=== PATIENT | male | born 1965 | race Two or more races ===

== ENCOUNTER 2016-06-17 20:16 | Emergency (ER) | payer MEDICAID ==
[~2016-06-17] VITALS: Ht 162.6 cm; Wt 81.6 kg
[2016-06-17 21:22] VITALS: BP 116/83
== END 2016-06-17 22:10 | disposition home or self-care (01) ==
LOC: ER 20:16
DX: J20.9 Acute bronchitis, unspecified (principal)
CPT/HCPCS: 71020

== ENCOUNTER 2018-06-25 16:10 | Emergency (ER) | payer MEDICAID ==
[~2018-06-25] VITALS: Ht 170.2 cm; Wt 90.7 kg
[2018-06-25 18:31] VITALS: BP 145/90
[2018-06-25] MEDS: MEPERIDINE HCL (50 MG/ML) 1 ML VIAL IM ONE (19:15)
[2018-06-25] MEDS: ONDANSETRON ODT 4 MG TAB PO ONE (19:15)
== END 2018-06-25 20:20 | disposition home or self-care (01) ==
LOC: EDBD 16:10 → ER 16:21
DX: M21.951 Unspecified acquired deformity of right thigh (principal); V03.90XA Pedestrian on foot injured in collision with car, pick-up truck or van, unspecified whether traffic or nontraffic accident, initial encounter; Y93.01 Activity, walking, marching and hiking; Y99.8 Other external cause status; Y92.89 Other specified places as the place of occurrence of the external cause
CPT/HCPCS: 73502; 73562; 96372; 99283; J2175; Q0162

== ENCOUNTER 2021-05-28 01:09 | Emergency (ER) | payer MEDICAID ==
[~2021-05-28] VITALS: Ht 162.6 cm; Wt 90.7 kg
[2021-05-28 01:16] VITALS: BP 114/75
== END 2021-05-28 02:33 | disposition left against medical advice (07) ==
LOC: ER 01:11
DX: M79.604 Pain in right leg (principal); R10.32 Left lower quadrant pain; Z53.21 Procedure and treatment not carried out due to patient leaving prior to being seen by health care provider

== ENCOUNTER 2021-08-06 18:00 | Inpatient (IN) | payer MEDICAID ==
[~2021-08-06] VITALS: Ht 162.6 cm; Wt 87.5 kg
[2021-08-06 19:19] LABS: Basophils # (auto) 0.1 10 ^3/uL (0-0.2); Basophils % (auto) 2.1 % (0.0-2.0); Eosinophils # (auto) 0.2 10 ^3/uL (0-0.8); Eosinophils % (auto) 2.6 % (0.0-7.0); Hematocrit 41.6 % (41.0-53.0); Hemoglobin 14.5 g/dL (13.5-17.5); Lymphocytes # (auto) 2.6 10 ^3/uL (0.4-5.4); Lymphocytes % (auto) 36.8 % (10.0-50.0); Mean Corpuscular Hemoglobin 29.4 pg (28.0-32.0); Mean Corpuscular Hgb Conc. 34.9 g/dL (32.0-36.0); Mean Corpuscular Volume 84.1 fL (80.0-100.0); Monocytes # (auto) 0.8 10 ^3/uL (0-1.3); Monocytes % (auto) 11.4 % (0.0-12.0); Neutrophils # (auto) 3.3 10 ^3/uL (1.6-8.6); Neutrophils % (auto) 47.1 % (37.0-80.0); Nucleated Red Blood Cells % 0.1 %; Red Blood Cells 4.95 10^6/uL (4.5-5.90); Red Cell Distribution Width 13.8 % (11.8-14.3); White Blood Cell 7.1 10^3/uL (4.4-10.8)
[2021-08-06 19:38] LABS: Albumin 3.8 g/dL (3.4-5.0); Calcium 8.6 mg/dL (8.5-10.1); Magnesium 2.5 mg/dL (1.6-2.6); Potassium 4.2 mmol/L (3.5-5.1)
[2021-08-06 19:41] LABS: Bilirubin, Total 0.8 mg/dL (0.2-1.0); Total Protein 7.6 g/dL (6.4-8.2)
[2021-08-06] MEDS ORDERED: ASPirin 81 mg TAB PO ONE (20:00)
[2021-08-06] MEDS ORDERED: HYDROcodone-ACET 5/325MG TAB PO PRN (21:30)
[2021-08-06] MEDS ORDERED: ONDANSETRON HCL 4 MG/2 ML VIAL IV PRN (21:30)
[2021-08-06] MEDS ORDERED: ACETAMINOPHEN 325 MG TAB PO PRN (21:30)
[2021-08-06] MEDS ORDERED: DOCUSATE SOD 100 MG CAP PO PRN (21:30)
[2021-08-06] MEDS ORDERED: MORPHINE SULFATE INJECTION 2 MG/ML SYRG IV PRN ×2 (21:30→23:30)
[2021-08-06] MEDS: SODIUM CHLOR 0.9% PF (SALINE LOCK) 10ML VIAL/SYR IV SCH (21:33)
[2021-08-06] MEDS ORDERED: ALBUTEROL SULF HFA 90MCG INH 200DOSE IN SCH (22:00)
[2021-08-06] MEDS ORDERED: ALBUTEROL SULF 2.5 MG/0.5ML(0.5%) NEB SOLN NEB PRN (22:00)
[2021-08-06 22:49] VITALS: BP 134/94
[2021-08-06 23:24] LABS: Cholesterol 148 mg/dL (< 200)
[2021-08-06 23:27] LABS: HDL Cholesterol 35 mg/dL (40-59); LDL Cholesterol 105 mg/dL (< 100); Triglycerides 107 mg/dL (< 150)
[2021-08-07 03:13] VITALS: BP 116/78
[2021-08-07] MEDS ORDERED: PNEUMOCOCCAL VACC POLYS 25 MCG/0.5 ML VIAL IM ONE (04:30)
[2021-08-07] MEDS ORDERED: HYDR-4798 PO (04:33)
[2021-08-07] MEDS ORDERED: ALBU108A5 INH (04:34)
[2021-08-07] MEDS: SODIUM CHLOR 0.9% PF (SALINE LOCK) 10ML VIAL/SYR IV SCH ×3 (05:08→22:14)
[2021-08-07 05:14] VITALS: BP 115/71
[2021-08-07 06:03] LABS: Basophils # (auto) 0 10 ^3/uL (0-0.2); Basophils % (auto) 0.9 % (0.0-2.0); Eosinophils # (auto) 0.3 10 ^3/uL (0-0.8); Eosinophils % (auto) 5.6 % (0.0-7.0); Hematocrit 39.5 % (41.0-53.0); Hemoglobin 13.7 g/dL (13.5-17.5); Lymphocytes # (auto) 2.3 10 ^3/uL (0.4-5.4); Lymphocytes % (auto) 41.2 % (10.0-50.0); Mean Corpuscular Hemoglobin 29.6 pg (28.0-32.0); Mean Corpuscular Hgb Conc. 34.8 g/dL (32.0-36.0); Mean Corpuscular Volume 85.1 fL (80.0-100.0); Monocytes # (auto) 0.7 10 ^3/uL (0-1.3); Monocytes % (auto) 12.5 % (0.0-12.0); Neutrophils # (auto) 2.2 10 ^3/uL (1.6-8.6); Neutrophils % (auto) 39.8 % (37.0-80.0); Nucleated Red Blood Cells % 0.2 %; Red Blood Cells 4.64 10^6/uL (4.5-5.90); Red Cell Distribution Width 13.8 % (11.8-14.3); White Blood Cell 5.5 10^3/uL (4.4-10.8)
[2021-08-07 06:26] LABS: Albumin 3.2 g/dL (3.4-5.0); Calcium 8.2 mg/dL (8.5-10.1); Potassium 3.7 mmol/L (3.5-5.1)
[2021-08-07 06:28] LABS: BUN/Creatinine Ratio 13.3
[2021-08-07 06:31] LABS: Bilirubin, Total 0.9 mg/dL (0.2-1.0); Total Protein 6.7 g/dL (6.4-8.2)
[2021-08-07 09:00] VITALS: BP 116/87
[2021-08-07] MEDS: ASPirin 81 mg TAB PO SCH (09:42)
[2021-08-07] MEDS: NITROGLYCERIN 0.4 MG SL TAB SL PRN ×3 (10:15→10:52)
[2021-08-07 13:00] VITALS: BP_SYST 122; BP_SYST 149; BP_DIAS 78; BP_DIAS 82
[2021-08-07 17:00] VITALS: BP 118/87
[2021-08-07 22:00] VITALS: BP 109/73
[2021-08-07] MEDS ORDERED: ATORVASTATIN 20 MG TAB PO SCH (22:00)
[2021-08-08 05:00] VITALS: BP 115/80
[2021-08-08] MEDS: SODIUM CHLOR 0.9% PF (SALINE LOCK) 10ML VIAL/SYR IV SCH ×2 (05:59→15:36)
[2021-08-08] MEDS: ASPirin 81 mg TAB PO SCH (08:45)
[2021-08-08 09:00] VITALS: BP 126/81
[2021-08-08 11:14] VITALS: BP 146/84
[2021-08-08 13:00] VITALS: BP 125/71
[2021-08-08 15:50] LABS: Amphetamine Screen, Urine NEGATIVE (NEGATIVE); Barbiturate Scree,Urine NEGATIVE (NEGATIVE); Benzodiazephine Screen, Urine NEGATIVE (NEGATIVE); Cannabinoid Screen, Urine NEGATIVE (NEGATIVE); Cocaine Screen, Urine NEGATIVE (NEGATIVE); Opiate Scree,Urine NEGATIVE (NEGATIVE); Phencyclidine Screen, Urine NEGATIVE (NEGATIVE)
[2021-08-08 17:00] VITALS: BP 117/73
== END 2021-08-08 20:30 | disposition left against medical advice (07) | DRG 198 ==
LOC: ER 18:00 → TELE-WESTW 23:19
PROVIDERS: ADMIT Nurse Practitioner Family; ATTEND Internal Medicine
DX: I20.0 Unstable angina (principal); E44.0 Moderate protein-calorie malnutrition; I11.9 Hypertensive heart disease without heart failure; E78.5 Hyperlipidemia, unspecified; E66.9 Obesity, unspecified; J45.909 Unspecified asthma, uncomplicated; Z53.29 Procedure and treatment not carried out because of patient's decision for other reasons; R73.03 Prediabetes; Z28.310 Unvaccinated for COVID-19; Z68.33 Body mass index [BMI] 33.0-33.9, adult; Z71.3 Dietary counseling and surveillance
CPT/HCPCS: 36415; 71045; 78452; 80053; 80061; 80307; 83036; 83735; 83880; 84443; 84484; 85025; 93005; 93017; 93306; 96374; G0378

== ENCOUNTER 2021-09-21 02:39 | Emergency (ER) | payer MEDICAID ==
[~2021-09-21] VITALS: Ht 162.6 cm; Wt 88.5 kg
[~2021-09-21 02:39] MED LIST: ALBU108A5 INH; HYDR-4798 PO
[2021-09-21 03:00] VITALS: BP 135/83
[2021-09-21 04:18] LABS: Basophils # (auto) 0 10 ^3/uL (0-0.2); Basophils % (auto) 0.5 % (0.0-2.0); Eosinophils # (auto) 0.3 10 ^3/uL (0-0.8); Eosinophils % (auto) 3.3 % (0.0-7.0); Hematocrit 40.7 % (41.0-53.0); Lymphocytes # (auto) 2.4 10 ^3/uL (0.4-5.4); Lymphocytes % (auto) 27.8 % (10.0-50.0); Mean Corpuscular Hemoglobin 29.1 pg (28.0-32.0); Mean Corpuscular Hgb Conc. 34.4 g/dL (32.0-36.0); Mean Corpuscular Volume 84.8 fL (80.0-100.0); Monocytes # (auto) 0.7 10 ^3/uL (0-1.3); Monocytes % (auto) 8.2 % (0.0-12.0); Neutrophils # (auto) 5.1 10 ^3/uL (1.6-8.6); Neutrophils % (auto) 60.2 % (37.0-80.0); Nucleated Red Blood Cells % 0.1 %; Red Cell Distribution Width 13.7 % (11.8-14.3); White Blood Cell 8.5 10^3/uL (4.4-10.8)
[2021-09-21 04:37] LABS: Potassium 3.5 mmol/L (3.5-5.1)
[2021-09-21 04:45] LABS: Albumin 3.6 g/dL (3.4-5.0); BUN/Creatinine Ratio 16.3; Bilirubin, Total 0.8 mg/dL (0.2-1.0); Calcium 8.6 mg/dL (8.5-10.1); Total Protein 7.1 g/dL (6.4-8.2)
== END 2021-09-21 04:20 | disposition home or self-care (01) ==
LOC: ER 02:39 → EDBD 02:39 → ER 04:20
DX: N20.0 Calculus of kidney (principal)
CPT/HCPCS: 36415; 74176; 80053; 85025; 93005

== ENCOUNTER 2021-10-23 22:51 | Emergency (ER) | payer MEDICAID ==
[~2021-10-23] VITALS: Ht 162.6 cm; Wt 95.0 kg
[2021-10-24 02:38] VITALS: BP 138/66
== END 2021-10-24 02:42 | disposition home or self-care (01) ==
LOC: ER 22:51
DX: M79.662 Pain in left lower leg (principal); M79.661 Pain in right lower leg; J45.909 Unspecified asthma, uncomplicated; Z87.442 Personal history of urinary calculi
CPT/HCPCS: 93970

== ENCOUNTER 2023-02-21 16:01 | Emergency (ER) | payer MEDICAID ==
[~2023-02-21] VITALS: Ht 167.6 cm; Wt 75.0 kg
[2023-02-21] MEDS ORDERED: HYDROcodone-ACET 7.5/325MG TAB PO ONE (22:30)
[2023-02-21] MEDS ORDERED: CYCL-611 PO (22:34)
[2023-02-21] MEDS ORDERED: HYDR-4902 PO (22:34)
[2023-02-21] MEDS: KETOROLAC TROMETH 60MG/2ML VIAL IM ONE ×2 (23:02→23:07)
[2023-02-21] MEDS ORDERED: ONDANSETRON ODT 4 MG TAB PO ONE (23:15)
[2023-02-22] VITALS: BP 138/78; PULSE 88; RESP 20; TEMP 98; O2SAT 100
== END 2023-02-22 00:06 | disposition home or self-care (01) ==
LOC: ER 16:01 → EDBD 16:01 → ER 02-22 00:06
DX: S13.9XXA Sprain of joints and ligaments of unspecified parts of neck, initial encounter (principal); S33.5XXA Sprain of ligaments of lumbar spine, initial encounter; S23.3XXA Sprain of ligaments of thoracic spine, initial encounter; S00.03XA Contusion of scalp, initial encounter; S20.212A Contusion of left front wall of thorax, initial encounter; N20.0 Calculus of kidney; N43.3 Hydrocele, unspecified; R91.1 Solitary pulmonary nodule; M89.9 Disorder of bone, unspecified; J45.909 Unspecified asthma, uncomplicated; Z79.899 Other long term (current) drug therapy; W18.39XA Other fall on same level, initial encounter; Y93.89 Activity, other specified; Y92.89 Other specified places as the place of occurrence of the external cause; Y99.8 Other external cause status
CPT/HCPCS: 70450; 71250; 72125; 74176; 99284; J1885; Q0162

== ENCOUNTER 2024-12-07 00:39 | Inpatient (IN) | payer MEDICAID ==
[2024-12-07] VITALS (7 sets, daily range): BP systolic 112–123; BP diastolic 72–79; PULSE 62–73; RESP 15–27; TEMP 97.3–98.7; O2SAT 94–97
[~2024-12-07] VITALS: Ht 154.9 cm; Wt 95.0 kg
[~2024-12-07 00:39] MED LIST changes: +CYCL-611 PO; +HYDR-4902 PO
--- NOTE | 2024-12-07 01:45 | DVH ---
Right lower extremity venous duplex Clinical History: r/o dvt Comparison: BI LOWER DVT on DOS: 10/24/21 Technique: Duplex Doppler evaluation of the deep venous system of the right lower extremity from the common femo ral vein to the popliteal vein including color Doppler and spectral/pulsed waveform analysis was perf ormed. Findings: The common femoral vein demonstrates appropriate compressibility and waveform variability. There is compressibility/patency of the great saphenous vein at the proximal thigh. The femoral vein demonstrates appropriate compressibility and waveform variability. The deep femoral vein demonstrates appropriate compressibility and waveform variability. The popliteal vein demonstrates appropriate compressibility and waveform variability. There is normal compressibility at the tibioperoneal trunk. Impression: 1. No right femoropopliteal venous thrombosis.
--- NOTE | 2024-12-07 02:10 | DVH ---
CHEST RADIOGRAPH Indication: cp Technique: 1 view Comparison: CXRP on DOS: 08/06/21, CHEST PORTABLE on DOS: 08/06/21 FINDINGS: Lines and Tubes: None Lungs/Pleura: No focal consolidation, pleural effusion or pneumothorax. Cardiomediastinum: Unremarkable. Other: No acute osseous abnormality. IMPRESSION: 1. No acute cardiopulmonary abnormality.
[2024-12-07 02:11] LABS: Hematocrit 42.3 % (41.0-53.0); Hemoglobin 14.4 g/dL (13.5-17.5); Mean Corpuscular Hemoglobin 29.0 pg (28.0-32.0); Mean Corpuscular Volume 85.0 fL (80.0-100.0); Nucleated Red Blood Cells % 0.1 %
--- NOTE | 2024-12-07 02:20 | ED.PDOC ---
History of Present Illness HPI Comments 59 y/o M is BIBA with c/c left, lateral chest wall pain. Patient endorses on watching a movie with his spouse when he had sudden and unprovoked onset of pain. No reported recent trauma alongside any pertinent history. Denial of any shortness of breath, nausea, vomiting, or further associated symptoms. Chief Complaint: Abdominal Pain Time Seen by MD: 00:45 Primary Care Provider: KENNETH Valdez Notes: Nurses Notes, Range Mechanic Notes, Medications, Allergies Allergies: Coded Allergies: NO KNOWN ALLERGIES (Unverified , 06/17/16) Home Meds Active Scripts Cyclobenzaprine HCl (Cyclobenzaprine Hydrochlo) 10 Mg Tab, 1 TAB PO Q8HPRN PRN, #15 TAB As needed for muscle spasm do not take with norco Prov:AVEL CABRERA MANAGER RESOURCE 02/21/23 Hydrocodone-Acetaminophen (Hydrocodone Bitartrate/AC 5-325 mg) 1 Tab Tab, 1 TAB PO Q6HR, #10 TAB as needed for pain Prov:AVEL CABRERA MANAGER RESOURCE 02/21/23 Reported Medications Albuterol Sulfate (Albuterol Sulfate Hfa) 108 Mcg/Act Aer, INH 08/07/21 Hydrocodone-Acetaminophen (Hydrocodone Bitartrate/AC 10-325 mg) 1 Tab Tab, 1 TAB PO TIDPRN, TAB 08/07/21 Information Source: Patient, Emergency Med Personnel Mode of Arrival: EMS Past Medical History PAST MEDICAL HISTORY: Angina, Asthma, Kidney Stones Surgical History: Denies all surgeries Family History Family History: Reviewed,noncontributory to illness Social History Smoker: Non-Smoker Alcohol: Denies ETOH Use Drugs: Denies Drug Use Lives In: Home All Other Systems: Reviewed and Negative (As per HPI) Physical Exam General Appearance: No Apparent Distress, Normal HEENT: Normal ENT Inspection, Pharynx Normal, TMs Normal Neck: Full Range of Motion, Non-Tender, Normal, Normal Inspection Respiratory: Chest Non-Tender, Lungs Clear, No Accessory Muscle Use, No Respiratory Distress, Normal Breath Sounds Cardiovascular: No Edema, No JVD, No Murmur, No Gallop, Normal Peripheral Pulses, Regular Rate/Rhythm Breast Exam: Deferred Gastrointestinal: No Organomegaly, Non Tender, No Pulsatile Mass, Normal Bowel Sounds, Soft Genitalia: Deferred Pelvic: Deferred Rectal: Deferred Extremities: No calf tenderness, Normal capillary refill, Normal inspection, Normal range of motion, Non-tender, No pedal edema Musculoskeletal : Location: Left Extremity Location: Chest (lateral chest wall ) Apperance: Normal, Tenderness Neurologic: Alert, business relations manager II-XII nml as Tested, No Motor Deficits, Normal Affect, Normal Mood, No Sensory Deficits Cerebellar Function: Normal Reflexes: Normal Skin: Dry, Normal Color, Warm Lymphatic: No Adenopathy Was a procedure done? Was a procedure done?: No Differential Dx Considerations may include: Musculoskeletal pain, splenic infarction, gastritis, GERD, PUD, among others X-Ray, Labs, Meds, VS Vital Signs Date Time Temp Pulse Resp B/P (MAP) Pulse Ox O2 Delivery O2 Flow Rate FiO2 12/07/24 01:11 81 12/07/24 00:49 98.7 86 15 120/78 98 98.7 Lab Test 12/07/24 01:53 Range/Units White Blood Count 7.8 4.4-10.8 10^3/uL Red Blood Count 4.97 4.5-5.90 10^6/uL Hemoglobin 14.4 13.5-17.5 g/dL Hematocrit 42.3 41.0-53.0 % Mean Corpuscular Volume 85.0 80.0-100.0 fL Mean Corpuscular Hemoglobin 29.0 28.0-32.0 pg Mean Corpuscular Hemoglobin Concent 34.1 32.0-36.0 g/dL Red Cell Distribution Width 13.7 11.8-14.3 % Platelet Count 389 140-450 10^3/uL Mean Platelet Volume 6.9 6.9-10.8 fL Neutrophils (%) (Auto) 48.4 37.0-80.0 % Lymphocytes (%) (Auto) 38.2 10.0-50.0 % Monocytes (%) (Auto) 9.1 0.0-12.0 % Eosinophils (%) (Auto) 3.5 0.0-7.0 % Basophils (%) (Auto) 0.8 0.0-2.0 % Neutrophils # (Auto) 3.8 1.6-8.6 10 ^3/uL Lymphocytes # (Auto) 3.0 0.4-5.4 10 ^3/uL Monocytes # (Auto) 0.7 0-1.3 10 ^3/uL Eosinophils # (Auto) 0.3 0-0.8 10 ^3/uL Basophils # (Auto) 0.1 0-0.2 10 ^3/uL Nucleated Red Blood Cells 0.1 % Sodium Level 139 136-145 mmol/L Potassium Level 4.3 3.5-5.1 mmol/L Chloride Level 102 98-107 mmol/L Carbon Dioxide Level 29 20-31 mmol/L Anion Gap 8 5-15 Blood Urea Nitrogen 11 9-23 mg/dL Creatinine 1.13 0.700-1.30 mg/dL Glomerular Filtration Rate Calc 76 >90 mL/min BUN/Creatinine Ratio 9.7 L 10.0-20.0 Serum Glucose 98 74-106 mg/dL Calcium Level 9.2 8.7-10.4 mg/dL Troponin I High Sensitivity 3 L </=54 ng/L [place] [id number] Ph: [phone] DIAGNOSTIC IMAGING Diagnostic Imaging Report : [id number] Signed PATIENT: HECTOR VERAS ACCT: [id number] UNIT: [id number] : 1965 LOC: ER ROOM / BED: / AGE / SEX: 59 / M ADM STATUS: REG ER SERVICE 0109 ORDERING PHYSICIAN: BLAKE KASPER MD PROCEDURE(s): RLDVT - RT Lower DVT REASON: r/o dvt ORDER NUMBER(s): [id number], ACCESSION NUMBER(s): [id number] Right lower extremity venous duplex Clinical History: r/o dvt Comparison: BI LOWER DVT on DOS: 10/24/21 Technique: Duplex Doppler evaluation of the deep venous system of the right lower extremity from the common femoral vein to the popliteal vein including color Doppler and spectral/pulsed waveform analysis was performed. Findings: The common femoral vein demonstrates appropriate compressibility and waveform variability. There is compressibility/patency of the great saphenous vein at the proximal thigh. The femoral vein demonstrates appropriate compressibility and waveform variability. The deep femoral vein demonstrates appropriate compressibility and waveform variability. The popliteal vein demonstrates appropriate compressibility and waveform variability. There is normal compressibility at the tibioperoneal trunk. Impression: 1. No right femoropopliteal venous thrombosis. ATED BY: KATHRYN ROBIN MD DICTATED DATE/TIME: 12/07/24142 SIGNED BY: KATHRYN ROBIN MD SIGNED DATE/TIME: 12/07/24142 CC: [place] [address] Ph: [phone] DIAGNOSTIC IMAGING Diagnostic Imaging Report : [id number] Signed PATIENT: HECTOR VERAS ACCT: [id number] UNIT: [id number] : 1965 LOC: ER ROOM / BED: / AGE / SEX: 59 / M ADM STATUS: REG ER SERVICE 8 ORDERING PHYSICIAN: BLAKE KASPER MD PROCEDURE(s): CXR1 - CHEST XRAY 1 VIEW REASON: cp ORDER NUMBER(s): [id number], ACCESSION NUMBER(s): [id number] CHEST RADIOGRAPH Indication: cp Technique: 1 view Comparison: CXRP on DOS: 08/06/21, CHEST PORTABLE on DOS: 08/06/21 FINDINGS: Lines and Tubes: None Lungs/Pleura: No focal consolidation, pleural effusion or pneumothorax. Cardiomediastinum: Unremarkable. Other: No acute osseous abnormality. IMPRESSION: 1. No acute cardiopulmonary abnormality. ATED BY: JOSEFINA COTO MD DICTATED DATE/TIME: 12/07/24206 SIGNED BY: JOSEFINA COTO MD SIGNED DATE/TIME: 12/07/24206 CC: Time of 1ST Reevaluation: 01:15 Reevaluation 1ST: Unchanged Patient Education/Counseling: Diagnosis, Treatment, Need For Follow Up Family Education/Counseling: Diagnosis, Treatment, Need For Follow Up Comments Patient reports a sudden onset of left says the chest pain which is nonreproducible. He also reports having some pain in the right leg. However there is no evidence of a DVT. The cardiac workup is unremarkable but patient has history is concerning for unstable angina he will be admitted for further evaluation Additional Information Previous visits: N/A The following tests were ordered, and results were reviewed by me: CXR, right lower DVT US, troponin, CBC, BMP, EKG Additional Information was gathered from interviewing the following independent historians: EMS I reviewed and agreed with the following test results read by other providers: CXR, right lower DVT US, I discussed treatment and results with medical personnel and: patient SEPSIS Sepsis Screen Date sepsis recognized/suspect: Dec 07, 2024 Time Sepsis recognized/suspect: 52 Recent Procedure: No On Antibiotic Therapy: No Respiratory Rate >20: No Heart Rate >90: No Temp<36 C (96.8 F) or >38.3 C: No SBP <90 or MAP <65 mmHG: No New Acute Mental Status Change: No Is the patient on CPAP, BIPAP,: No Physician Orders Electrocardigram (12/07/24 00:54) Electrocardigram (12/07/24 01:54) Electrocardigram (12/07/24 03:54) Rt Lower Dvt (12/07/24 01:09) Chest Xray 1 View (12/07/24 01:09) Continuous Ekg Monitoring 08,12,16,20,00,04 (12/07/24 01:09) Troponin-I Hs (12/07/24 02:09) Troponin-I Hs (12/07/24 04:09) Vital Signs Date Time Temp Pulse Resp B/P (MAP) Pulse Ox O2 Delivery O2 Flow Rate FiO2 12/07/24 01:11 81 12/07/24 00:49 98.7 86 15 120/78 98 98.7 Laboratory Tests Test 12/07/24 01:53 White Blood Count 7.8 10^3/uL (4.4-10.8) Departure 1 Departure Time of Disposition: 03:00 Impression: Primary Impression: Unstable angina Disposition: ADMITTED INPATIENT Admit to: Tele Condition: Serious Discharged With: Self, Spouse Critical Care Note Critical Care Time?: Yes (55 min-critical care time only) Critical care comment: Due to concerns for patients condition deteriorating, the care required my highest level of attention and readiness to intervene. I assessed the patient, reviewed the medical records, ordered the appropriate tests and treatments, then reassessed for results and responsiveness. I communicated with medical personnel and consultants and formulated a plan of care. Total critical care time excludes any procedures Stability Stability form required: No Heart Score Heart Score: Heart Score Response (Comments) Value History Moderate Suspicious 1 EKG Repolarization Disturb 1 Age 45-64 1 Risk Factors 1 or 2 risk factors 1 Troponin Normal limit 0 Total 4 I personally scribed for BLAKE KASPER MD ([email or web address]) on 12/07/24 at 02:20. Electronically submitted by Omid Duval ([email or web address]). BLAKE KASPER MD Dec 07, 2024 02:20
[2024-12-07 02:22] LABS: Chloride 102 mmol/L (98-107); Potassium 4.3 mmol/L (3.5-5.1); Sodium 139 mmol/L (136-145)
[2024-12-07 02:23] LABS: Anion Gap 8 (5-15); Calcium 9.2 mg/dL (8.7-10.4); Carbon Dioxide 29 mmol/L (20-31)
[2024-12-07 02:28] LABS: BUN/Creatinine Ratio 9.7 (10.0-20.0); Blood Urea Nitrogen 11 mg/dL (9-23); Glucose 98 mg/dL (74-106)
--- NOTE | 2024-12-07 03:36 | DVHHPRES ---
History of Present Illness Resident Creating Document: GABBI REID History of Present Illness You Humphries is a 59-year-old male patient who presents to the ED via EMS due to cramping/sectioning pain of left flank which radiated to left upper quadrant and then radiated towards right thigh which started in Functional Class IV (patient was watching TV in bed) lasted for approximately 20 minutes, it resolved spontaneously. Patient never presented this kind of pain before. He also was complaining of nonbloody diarrhea 48 hours before his admission which resolved spontaneously. Denies any other associated symptoms Past medical history: Nephrolithiasis with conservative treatment approximately 20 years ago Surgical history: Left rotator cuff repair x2 Family history: Noncontributory Social history lives in [place] with family (next of kin is ). Denies current tobacco, alcohol and other drug abuse. Patient is on disability due to rotator cuff tear Allergies: Denies Home medication: [place] p.r.n. Patient seen and examined in [facility]. Currently has no new complaints. Patient's pain resolved spontaneously, he is sure he did not receive any medication and EMS. Past Medical History Per HPI Past Surgical History Per HPI Family History Per HPI Past Social History Per HPI Review of Systems Review of Systems Per HPI Allergies: Coded Allergies: NO KNOWN ALLERGIES (Unverified , 06/17/16) Exam Vital Signs Vital Signs Date Time Temp Pulse Resp B/P (MAP) Pulse Ox O2 Delivery O2 Flow Rate FiO2 12/07/24 01:11 81 12/07/24 00:49 98.7 15 120/78 98 98.7 Exam Patient lying in bed, in no acute distress General: Lucid, afebrile, mucosae are moist Cardiovascular: Normal S1 and S2. No murmurs, gallops or rubs Respiratory: Normal ventilation mechanics. Clear lung sounds on auscultation Abdomen: Soft, nontender, no organomegaly, normal bowel sounds MSK/skin: Mobilizes 4 limbs. Skin is dry and warm Neurological: Oriented in 3 spheres. No motor no sensitive deficits. Pupils are isocoric and reactive Labs/Xrays Labs Test 12/07/24 02:49 12/07/24 01:53 Range/Units White Blood Count 7.8 4.4-10.8 10^3/uL Red Blood Count 4.97 4.5-5.90 10^6/uL Hemoglobin 14.4 13.5-17.5 g/dL Hematocrit 42.3 41.0-53.0 % Mean Corpuscular Volume 85.0 80.0-100.0 fL Mean Corpuscular Hemoglobin 29.0 28.0-32.0 pg Mean Corpuscular Hemoglobin Concent 34.1 32.0-36.0 g/dL Red Cell Distribution Width 13.7 11.8-14.3 % Platelet Count 389 140-450 10^3/uL Mean Platelet Volume 6.9 6.9-10.8 fL Neutrophils (%) (Auto) 48.4 37.0-80.0 % Lymphocytes (%) (Auto) 38.2 10.0-50.0 % Monocytes (%) (Auto) 9.1 0.0-12.0 % Eosinophils (%) (Auto) 3.5 0.0-7.0 % Basophils (%) (Auto) 0.8 0.0-2.0 % Neutrophils # (Auto) 3.8 1.6-8.6 10 ^3/uL Lymphocytes # (Auto) 3.0 0.4-5.4 10 ^3/uL Monocytes # (Auto) 0.7 0-1.3 10 ^3/uL Eosinophils # (Auto) 0.3 0-0.8 10 ^3/uL Basophils # (Auto) 0.1 0-0.2 10 ^3/uL Nucleated Red Blood Cells 0.1 % Sodium Level 139 136-145 mmol/L Potassium Level 4.3 3.5-5.1 mmol/L Chloride Level 102 98-107 mmol/L Carbon Dioxide Level 29 20-31 mmol/L Anion Gap 8 5-15 Blood Urea Nitrogen 11 9-23 mg/dL Creatinine 1.13 0.700-1.30 mg/dL Glomerular Filtration Rate Calc 76 >90 mL/min BUN/Creatinine Ratio 9.7 L 10.0-20.0 Serum Glucose 98 74-106 mg/dL Calcium Level 9.2 8.7-10.4 mg/dL SEPSIS Sepsis Screen Date sepsis recognized/suspect: Dec 07, 2024 Time Sepsis recognized/suspect: 52 Recent Procedure: No On Antibiotic Therapy: No Respiratory Rate >20: No Heart Rate >90: No Temp<36 C (96.8 F) or >38.3 C: No SBP <90 or MAP <65 mmHG: No New Acute Mental Status Change: No Is the patient on CPAP, BIPAP,: No Physician Orders Electrocardigram (12/07/24 00:54) Electrocardigram (12/07/24 01:54) Electrocardigram (12/07/24 03:54) Rt Lower Dvt (12/07/24 01:09) Chest Xray 1 View (12/07/24 01:09) Continuous Ekg Monitoring 08,12,16,20,00,04 (12/07/24 01:09) Troponin-I Hs (12/07/24 02:09) Troponin-I Hs (12/07/24 04:09) Admit (12/07/24 03:33) Code Status (12/07/24 03:) Vital Signs .PER UNIT PROTOCOL (12/07/24 03:33) Review Orders With Adm.Md (12/07/24 03:33) Regular Diet (12/07/24 Breakfast) Acetaminophen Tablet (Tylenol Tablet) (12/07/24 03:45) Notify Md Of Changes From Base (12/07/24 03:33) Advance Directive (12/07/24 03:33) Patient Condition (12/07/24 03:33) Allergies (12/07/24 03:33) Ondansetron Hcl (Zofran) (12/07/24 03:45) Morphine 2mg Iv Q4hprn (12/07/24 03:45) Lovenox 40mg (12/07/24 10:00) Oxygen By Nasal Cannula (12/07/24 03:33) Stat Ekg For Chest Pain (12/07/24 03:33) Notify Md Of Changes From Base (12/07/24 03:33) Steam Frame Operator For 24 Hours (12/07/24 03:33) Emergency Dysrhythmia Protocol (12/07/24:33) Rhythm Strips Once Every Shift (12/07/24 03:33) Ct Ab Pel Wo Con-No Oral Or Iv (12/07/24 03:33) Vital Signs Date Time Temp Pulse Resp B/P (MAP) Pulse Ox O2 Delivery O2 Flow Rate FiO2 12/07/24 01:11 81 12/07/24 00:49 98.7 86 15 120/78 98 98.7 Laboratory Tests Test 12/07/24 01:53 White Blood Count 7.8 10^3/uL (4.4-10.8) Assessment/Plan Assessment/Plan Rule out nephrolithiasis Patient has history of nephrolithiasis Ordered abdomen and pelvis CT Pending urine analysis Currently indicated IV fluids, no IV antibiotics at this point until urine analysis results Rule out acute coronary syndrome rule out DVT Patient troponin x1 negative, EKG showed no ST-elevation normal sinus rhythm (negative T-waves in inferior leads), noncardiac pain. Ordered echocardiogram Patient presented cramping pain on right thigh, ordered venous ultrasound Prediabetes (hemoglobin A1c 5.9%) Currently on insulin sliding scale History of rotator cuff tear status post surgery in two opportunities Continue pain management Goals of care discussed with patient for over 18 minutes: Full code status Discussed plan with Dr. Carmona, patient and nurses: Admit patient to [facility] floor, ordered abdomen and pelvis CT to evaluate nephrolithiasis. Plan discussed with: Patient, Spouse, Other (Nurses) My Orders Orders - GABBI REID RESIDENT Procedure Category Date Status Time Admit ADMIT 12/07/24 Transmitted 03:33 Code Status CODE 12/07/24 Transmitted 03:33 Vital Signs [facility] 12/07/24 Transmitted 03:33 Review Orders With [facility] 12/07/24 Transmitted Adm. 03:33 Regular Diet DIET 12/07/24 Transmitted Breakfast Acetaminophen Tablet [facility] 12/07/24 Transmitted (Tylenol Tablet) 03:45 Notify Of Changes [facility] 12/07/24 Verified From Base 03:33 Advance Directive [facility] 12/07/24 Verified 03:33 Patient Condition ORDERS 12/07/24 Verified 03:33 Allergies [facility] 12/07/24 Verified 03:33 Ondansetron Hcl [facility] 12/07/24 Verified (Zofran) 03:45 Morphine 2mg Iv Q4hprn [facility] 12/07/24 Verified 03:45 Lovenox 40mg [facility] 12/07/24 Verified 10:00 Oxygen By Nasal RT 12/07/24 Verified Cannula 03:33 Stat Ekg For Chest [facility] 12/07/24 Verified Pain 03:33 Notify Of Changes [facility] 12/07/24 Verified From Base 03:33 Steam Frame Operator For [facility] 12/07/24 Verified 24 Hours 03:33 Emergency Dysrhythmia [facility] 12/07/24 Verified Protocol 03:33 Rhythm Strips Once [facility] 12/07/24 Verified Every Shift 03:33 Ct Ab Pel Wo Con-No CT 12/07/24 Transmitted Oral Or Iv 03:33 Date of Service: Dec 07, 2024 Billing Provider: LESLIE CARMONA MD Common Visit Codes: [id number] INP/OBS CARE (HIGH) Secondary Visit Codes: [id number] CARE PLAN 30 MINUTES GABBI REID RESIDENT Dec 07, 2024 03:35
[2024-12-07] MEDS ORDERED: ONDANSETRON HCL 4 MG/2 ML VIAL IV PRN (03:45)
[2024-12-07] MEDS ORDERED: MORPHINE SULFATE INJ 2 MG/ml SYRG IV PRN (03:45)
[2024-12-07] MEDS ORDERED: ACETAMINOPHEN 325 MG TAB PO PRN (03:45)
[2024-12-07 04:23] LABS: Urine Protein, UAD TRACE (Negative)
[2024-12-07] MEDS: HYDROcodone-ACET 5/325MG TAB PO ONE (04:24)
--- NOTE | 2024-12-07 04:32 | DVH ---
Exam: CT CT AB PEL WO CON-NO ORAL OR IV History: Rule out nephrolithiasis Comparison Study: CT CHST AB PEL WO CON-NO IV/ORAL on DOS: 02/21/23, CT ABD PELVIS WO CONTRAST on DOS : 09/21/21, ECIDC on DOS: 08/07/21 TECHNIQUE: Multidetector CT of the abdomen and pelvis was performed from lung bases to pubic symphysi s. Imaging was performed without IV contrast. Axial, coronal and sagittal multiplanar reformats were obtained from the axial data set by the technologist. Radiation optimization: All CT scans at this facility use at least one of these dose optimization regulo hniques: automated exposure control mA and/or kV adjustment per patient size (includes targeted exam s where dose is matched to clinical indication) or iterative reconstruction. Radiation Dose Information: CT Dose: CTDI volume is 19.12 mGy. Dose-length product is 3.92 mGy*cm FINDINGS: Evaluation of solid organs is limited due to lack of intravenous contrast use. Imaged portions of the lung bases demonstrate subsegmental atelectasis. Small hiatal hernia. Liver, g allbladder, spleen, pancreas, adrenal glands appear unremarkable. The kidneys appear symmetric witho ut nephrolithiasis or hydronephrosis. No evidence of bowel obstruction or focal bowel wall thickening. Appendix appears normal. No free flu id, free air, or adenopathy. No suspicious osseous lesion. IMPRESSION: 1. No evidence of nephrolithiasis or hydronephrosis.
[2024-12-07 04:36] LABS: Amphetamine Screen, Urine Neg (NEGATIVE); Barbiturate Scree,Urine Neg (NEGATIVE); Benzodiazephine Screen, Urine Neg (NEGATIVE); Cannabinoid Screen, Urine Neg (NEGATIVE); Cocaine Screen, Urine Neg (NEGATIVE); Opiate Scree,Urine Neg (NEGATIVE); Phencyclidine Screen, Urine Neg (NEGATIVE)
[2024-12-07 05:11] LABS: INR 1.01 (0.9-1.15); Partial Thromboplastin Time 32.2 SEC (24.5-34.5); Prothrombin Time 10.7 sec (9.3-11.8)
[2024-12-07 05:30] LABS: Alanine Aminotransferase 32 U/L (7-40); Albumin 4.4 g/dL (3.2-4.8); Anion Gap 12 (5-15); BUN/Creatinine Ratio 15.0 (10.0-20.0); Blood Urea Nitrogen 16 mg/dL (9-23); Calcium 9.2 mg/dL (8.7-10.4); Carbon Dioxide 25 mmol/L (20-31); Chloride 102 mmol/L (98-107); Lipase 45 U/L (12-53); Magnesium 1.9 mg/dL (1.6-2.6); Potassium 3.9 mmol/L (3.5-5.1); Sodium 139 mmol/L (136-145); Total Protein 7.1 g/dL (5.7-8.2)
[2024-12-07 05:31] LABS: Alkaline Phosphatase 136 U/L (46-116); Bilirubin, Total 0.5 mg/dL (0.2-1.0); Glucose 112 mg/dL (74-106)
[2024-12-07 06:05] LABS: Cholesterol 164 mg/dL (< 200)
[2024-12-07 06:09] LABS: HDL Cholesterol 36 mg/dL (40-59); Triglycerides 244 mg/dL (< 150)
--- NOTE | 2024-12-07 07:02 | ECG ---
[facility] Test Date: 2024-12-07 Test Time: 00:55:42 Pat Name: HECTOR VERAS Department: Room: 0217 Gender: M Supply Aide: : 1965 Requested By: BLAKE KASPER Order Number: [id number] Reading MD: Wan Nicholson Measurements Intervals [place] Rate: 81 P: 70 SD: 159 QRS: 68 QRSD: 93 T: -29 QT: 353 QTc: 410 Interpretive Statements Sinus rhythm Borderline T abnormalities, inferior leads Electronically Signed On 12-10-2024 9:36:19 PDT by Wan Nicholson Please click the below link to view image of tracing.
[2024-12-07] MEDS ORDERED: DEXTROSE (50%) 50ML SYRG IV PRN (07:30)
[2024-12-07] MEDS: ENOXAPARIN SOD 40 MG/0.4 ML SYRINGE SC SCH (10:00)
[2024-12-07] MEDS: InsuLIN REG 1unit/0.01ml Soln (100units/ml) SC SCH (11:30)
[2024-12-07] MEDS: ACCU-CHEK COMFORT CURVE STRIP VI SCH (11:30)
--- NOTE | 2024-12-07 14:09 | DVHPN2 ---
Reviewed: Care Plan, H&P, Labs, Medications, Previous Orders, Radiology Changes from previous H/P or p: No Changes Objective Vitals Vital Signs Date Time Temp Pulse Resp B/P (MAP) Pulse Ox O2 Delivery O2 Flow Rate FiO2 12/07/24 08:06 97.8 67 15 112/74 (87) 94 97.8 12/07/24 07:56 Room Air* 0 21 Medications Current Medications Medications Dose Ordered Sig/Jarrod Route Start Time Stop Time Status Last Admin Dose Admin Acetaminophen 650 mg Q6HP PRN PO 12/07/24 03:45 Ondansetron HCl 4 mg Q4HP PRN IV 12/07/24 03:45 Morphine Sulfate 2 mg Q4HPRN PRN IV 12/07/24 03:45 Enoxaparin Sodium 40 mg DAILY SC 12/07/24 10:00 Diagnostic Test (Pha) 1 strip ACHS 12/07/24 11:30 Insulin Human Regular ACHS SC 12/07/24 11:30 Dextrose 50 ml UD PRN IV 12/07/24 07:30 Laboratory Results Laboratory Tests 12/07/24 01:53 12/07/24 02:49 Chemistry Test 12/07/24 01:53 12/07/24 02:49 Calcium Level 9.2 mg/dL (8.7-10.4) 9.2 mg/dL (8.7-10.4) Albumin 4.4 g/dL (3.2-4.8) Magnesium Level 1.9 mg/dL (1.6-2.6) Phosphorus Level 4.5 mg/dL (2.4-5.1) Total Protein 7.1 g/dL (5.7-8.2) Coagulation Test 12/07/24 01:53 Prothrombin Time 10.7 sec (9.3-11.8) Prothrombin Time INR 1.01 (0.9-1.15) Activated Partial Thromboplast Time 32.2 SEC (24.5-34.5) Lipid panel Test 12/07/24 02:49 Cholesterol Level 164 mg/dL (< 200) HDL Cholesterol 36 mg/dL (40-59) L Lipase 45 U/L (12-53) Triglycerides Level 244 mg/dL (< 150) H LFT Test 12/07/24 02:49 Alanine Aminotransferase (ALT) 32 U/L (7-40) Alkaline Phosphatase 136 U/L (46-116) H Aspartate Amino Transferase (AST) 26 U/L (13-40) Total Bilirubin 0.5 mg/dL (0.2-1.0) HgA1c, TSH Test 12/07/24 01:53 Hemoglobin A1c 5.9 % A1C (<5.7) H Thyroid Stimulating Hormone (TSH) 3.00 uIU/mL (0.55-4.78) Urinalysis Test 12/07/24 03:00 Urine Color Yellow (Yellow) Urine Clarity Turbid (Clear) H Urine pH 6.0 (5.0-9.0) Urine Specific [place] 1.030 (1.001-1.035) Urine Protein Trace (Negative) H Urine Ketones Negative (Negative) Urine Blood Negative /uL (Negative) Urine Nitrite Negative (Negative) Urine Bilirubin Negative (Negative) Urine Urobilinogen 4 mg/dL (Negative) H Urine Leukocyte Esterase Negative /uL (Negative) Urine RBC 4 /hpf (0 - 3) Urine Microscopic WBC 1 /HPF (0-3) Urine Squamous Epithelial Cells Few /hpf (<5) Urine Calcium Oxalate Crystals Few (None Seen) Urine Bacteria None seen /hpf (None Seen) Urine Mucus Few (None Seen) Urine Glucose Normal mg/dL (Normal) Labs and/or images reviewed: Labs reviewed by me, Image(s) reviewed by me Assessment/Plan Assessment/Plan Left Flank pain: Kidney stones ruled out History of kidney stones DVT ruled out Time 35 minutes Plan discussed with: Patient Date of Service: Dec 07, 2024 Billing Provider: ANA SHELTON MD Common Visit Codes: [id number] INP/OBS CARE(HIGH) ANA SHELTON MD Dec 07, 2024 14:09
[2024-12-08 01:00] VITALS: BP 102/65; PULSE 62; RESP 15; TEMP 97.8; O2SAT 94
[2024-12-08 05:00] VITALS: BP 117/77; PULSE 60; RESP 16; TEMP 98; O2SAT 98
[2024-12-08 09:00] VITALS: BP 137/86; PULSE 67; RESP 17; TEMP 97.6; O2SAT 96
--- NOTE | 2024-12-08 09:56 | DVHPN2 ---
Reviewed: Care Plan, H&P, Labs, Medications, Previous Orders, Radiology Changes from previous H/P or p: No Changes Objective Vitals Vital Signs Date Time Temp Pulse Resp B/P (MAP) Pulse Ox O2 Delivery O2 Flow Rate FiO2 12/08/24 08:00 Room Air* 0 21 12/08/24 05:00 98.0 60 16 117/77 (90) 98 98.0 Intake/Output Intake and Output 12/08/24 07:00 Intake Total 2185 ml Output Total 1200 ml Balance 985 ml Intake Oral 2185 ml Output Urine Total 1200 ml # Bowel Movements 1 Medications Current Medications Medications Dose Ordered Sig/Jarord Route Start Time Stop Time Status Last Admin Dose Admin Acetaminophen 650 mg Q6HP PRN PO 12/07/24 03:45 Ondansetron HCl 4 mg Q4HP PRN IV 12/07/24 03:45 Morphine Sulfate 2 mg Q4HPRN PRN IV 12/07/24 03:45 Enoxaparin Sodium 40 mg DAILY SC 12/07/24 10:00 Diagnostic Test (Pha) 1 strip ACHS 12/07/24 11:30 12/07/24 21:11 1 STRIP Insulin Human Regular ACHS SC 12/07/24 11:30 Dextrose 50 ml UD PRN IV 12/07/24 07:30 Laboratory Results Laboratory Tests 12/07/24 01:53 12/07/24 02:49 Urinalysis Test 12/07/24 03:00 Urine Color Yellow (Yellow) Urine Clarity Turbid (Clear) H Urine pH 6.0 (5.0-9.0) Urine Specific [place] 1.030 (1.001-1.035) Urine Protein Trace (Negative) H Urine Ketones Negative (Negative) Urine Blood Negative /uL (Negative) Urine Nitrite Negative (Negative) Urine Bilirubin Negative (Negative) Urine Urobilinogen 4 mg/dL (Negative) H Urine Leukocyte Esterase Negative /uL (Negative) Urine RBC 4 /hpf (0 - 3) Urine Microscopic WBC 1 /HPF (0-3) Urine Squamous Epithelial Cells Few /hpf (<5) Urine Calcium Oxalate Crystals Few (None Seen) Urine Bacteria None seen /hpf (None Seen) Urine Mucus Few (None Seen) Urine Glucose Normal mg/dL (Normal) Labs and/or images reviewed: Labs reviewed by me, Image(s) reviewed by me Assessment/Plan Assessment/Plan Left Flank pain: Kidney stones ruled out History of kidney stones DVT ruled out Time 35 minutes Patient has no pain feels better and wants to go home Plan discussed with: Patient Date of Service: Dec 08, 2024 Billing Provider: ANA SHELTON MD Common Visit Codes: [id number] INP/OBS CARE(HIGH) ANA SHELTON MD Dec 08, 2024 09:56
--- NOTE | 2024-12-08 09:56 | DVHSR ---
APPROVED REPORT EXAM: Two-dimensional and M-mode echocardiogram with Doppler and color Doppler. Blood Pressure: 112/74 mmHg INDICATION Rule out ACS RISK FACTORS Height: 5' 6", Weight: 180 DIMENSIONS LVDd4.9 (3.8-5.7cm)LA (2D)3.0 (1.9-4.0cm)Aortic Root3.0 (2.0-3.7cm) LVDs3.3 (2.5-4.0cm)LA (MM) (1.9-4.0cm)Aortic Cusp Exc1.6 (1.5-2.0cm) EF (%) 60.0 (55-70%)Rt. Atrium3.5 (1.9-4.0cm)Asc. Aorta cm IVSd1.0 (0.7-1.1cm)RV (D) (1.8-2.4cm) PWd0.9 (0.7-1.1cm) Mitral Valve MitralMitral Stenosis E wave0.90m/sMV Mean GR.mmHg A wave0.70m/sMV Peak GR.mmHg E/A ratio1.32D MVAcm2 Aortic Valve Aortic ValveAortic Stenosis V10.90m/Valeri Mean GR.3mmHg V21.00m/Valeri Peak GR.5mmHg LVOT Diameter2.1 (1.8-2.4cm)Doppler AVA3.12cm2 Pulmonic Valve V20.50m/s Tricuspid Valve TR Velocity2.40m/s [id number] Conclusion lvef 60% normal rv function normal atria no severe valve abnormalities noted
--- NOTE | 2024-12-08 10:00 | DVHDS2 ---
Discharge Summary Date of Admission Dec 07, 2024 at 03:33 Date of Discharge: Dec 08, 2024 Admitting Diagnosis Left flank pain Wounds: None Labs/Diagnostic Data: Laboratory Results Test 12/07/24 21:14 12/07/24 04:50 12/07/24 03:00 12/07/24 02:49 POC Glucose 136 mg/dl (70-106) Lactic Acid Level 1.2 mmol/L (0.4-2.0) Troponin I High Sensitivity < 3 ng/L (</=54) Urine Color Yellow (Yellow) Urine Clarity Turbid (Clear) Urine pH 6.0 (5.0-9.0) Urine Specific [place] 1.030 (1.001-1.035) Urine Protein Trace (Negative) Urine Ketones Negative (Negative) Urine Blood Negative /uL (Negative) Urine Nitrite Negative (Negative) Urine Bilirubin Negative (Negative) Urine Urobilinogen 4 mg/dL (Negative) Urine Leukocyte Esterase Negative /uL (Negative) Urine RBC 4 /hpf (0 - 3) Urine Microscopic WBC 1 /HPF (0-3) Urine Squamous Epithelial Cells Few /hpf (<5) Urine Calcium Oxalate Crystals Few (None Seen) Urine Bacteria None seen /hpf (None Seen) Urine Mucus Few (None Seen) Urine Glucose Normal mg/dL (Normal) Urine Opiates Screen Neg (NEGATIVE) Urine Fentanyl Screen Neg (NEGATIVE) Urine Barbiturates Screen Neg (NEGATIVE) Urine Phencyclidine Screen Neg (NEGATIVE) Urine Amphetamines Screen Neg (NEGATIVE) Urine Benzodiazepines Screen Neg (NEGATIVE) Urine Cocaine Screen Neg (NEGATIVE) Urine Cannabinoids Screen Neg (NEGATIVE) Sodium Level 139 mmol/L (136-145) Potassium Level 3.9 mmol/L (3.5-5.1) Chloride Level 102 mmol/L (98-107) Carbon Dioxide Level 25 mmol/L (20-31) Anion Gap 12 (5-15) Blood Urea Nitrogen 16 mg/dL (9-23) Creatinine 1.07 mg/dL (0.700-1.30) Glomerular Filtration Rate Calc 81 mL/min (>90) BUN/Creatinine Ratio 15.0 (10.0-20.0) Serum Glucose 112 mg/dL (74-106) Calcium Level 9.2 mg/dL (8.7-10.4) Phosphorus Level 4.5 mg/dL (2.4-5.1) Magnesium Level 1.9 mg/dL (1.6-2.6) Total Bilirubin 0.5 mg/dL (0.2-1.0) Aspartate Amino Transferase (AST) 26 U/L (13-40) Alanine Aminotransferase (ALT) 32 U/L (7-40) Alkaline Phosphatase 136 U/L (46-116) Total Protein 7.1 g/dL (5.7-8.2) Albumin 4.4 g/dL (3.2-4.8) Triglycerides Level 244 mg/dL (< 150) Cholesterol Level 164 mg/dL (< 200) LDL Cholesterol 119 mg/dL (< 100) HDL Cholesterol 36 mg/dL (40-59) Lipase 45 U/L (12-53) Test 12/07/24 01:53 White Blood Count 7.8 10^3/uL (4.4-10.8) Red Blood Count 4.97 10^6/uL (4.5-5.90) Hemoglobin 14.4 g/dL (13.5-17.5) Hematocrit 42.3 % (41.0-53.0) Mean Corpuscular Volume 85.0 fL (80.0-100.0) Mean Corpuscular Hemoglobin 29.0 pg (28.0-32.0) Mean Corpuscular Hemoglobin Concent 34.1 g/dL (32.0-36.0) Red Cell Distribution Width 13.7 % (11.8-14.3) Platelet Count 389 10^3/uL (140-450) Mean Platelet Volume 6.9 fL (6.9-10.8) Neutrophils (%) (Auto) 48.4 % (37.0-80.0) Lymphocytes (%) (Auto) 38.2 % (10.0-50.0) Monocytes (%) (Auto) 9.1 % (0.0-12.0) Eosinophils (%) (Auto) 3.5 % (0.0-7.0) Basophils (%) (Auto) 0.8 % (0.0-2.0) Neutrophils # (Auto) 3.8 10 ^3/uL (1.6-8.6) Lymphocytes # (Auto) 3.0 10 ^3/uL (0.4-5.4) Monocytes # (Auto) 0.7 10 ^3/uL (0-1.3) Eosinophils # (Auto) 0.3 10 ^3/uL (0-0.8) Basophils # (Auto) 0.1 10 ^3/uL (0-0.2) Nucleated Red Blood Cells 0.1 % Prothrombin Time 10.7 sec (9.3-11.8) Prothrombin Time INR 1.01 (0.9-1.15) Activated Partial Thromboplast Time 32.2 SEC (24.5-34.5) Hemoglobin A1c 5.9 % A1C (<5.7) Thyroid Stimulating Hormone (TSH) 3.00 uIU/mL (0.55-4.78) Other Laboratory Tests 12/07/24 02:49 12/07/24 01:53 Brief Hx & Hospital Course: 59-year-old male with a history of kidney stones came in for left flank pain. CT abdomen pelvis without contrast negative for any kidney stones all labs were normal. DVT ruled out. Patient feels better afebrile and wants to go home. Discharged home. No new prescriptions. He will follow up with his primary doctor. Consults/Reason for consult None Operations or Procedures CT abdomen pelvis without contrast Condition at Discharge: Fair Final Diagnosis/Problems List Left Flank pain: Kidney stones ruled out History of kidney stones DVT ruled out Time 35 minutes Discharge Disposition: Home Discharge Instruct/Medications Diet: Regular Activity: Light activity Follow Up/Referral: Follow up with your primary Dr Medications: none Scheduled Hydrocodone-Acetaminophen (Hydrocodone Bitartrate/AC 10-325 mg), 1 TAB PO TIDPRN, (Reported) Scheduled PRN Cyclobenzaprine HCl (Cyclobenzaprine Hydrochlo), 1 TAB PO Q8HPRN PRN Miscellaneous Medications Albuterol Sulfate (Albuterol Sulfate Hfa), Unknown Dose INH, (Reported) 35 (Time taken for discharge summary 35 mts) Discharge Statement: "Patient was advised to return to the ER or call 911 if any headaches, dizziness, shortness of breath, chest pain, abdominal pain, bleeding, fevers, or worsening of medical condition. Patient was counseled about treatment plan, medications, possible side effects, patientverbalized understanding. All questions were answered to the best of my ability. This discharge took greater then 30 minutes in planning, reviewing documentation, counseling the patient, and discussing with other team members." ASSESSMENT ASSESSMENT Hospital Course Uneventful Assessment Left Flank pain: Kidney stones ruled out History of kidney stones DVT ruled out Time 35 minutes Date of Service: Dec 08, 2024 Billing Provider: ANA SHELTON MD Common Visit Codes: [id number] DISCH DAY >30min ANA SHELTON MD Dec 08, 2024 10:00
[2024-12-08 11:02] VITALS: BP 137/86; PULSE 67; RESP 16; TEMP 97.6; O2SAT 96
== END 2024-12-08 12:16 | disposition home or self-care (01) | DRG 254 ==
LOC: EDUNIT# 00:39 → ER 00:39 → EDSEX 00:39 → EDBD 00:39 → OVERFLOW 03:33 → CENTRAL 16:33
PROVIDERS: ADMIT Family Medicine; ATTEND Family Medicine
DX: K44.9 Diaphragmatic hernia without obstruction or gangrene (principal); J45.909 Unspecified asthma, uncomplicated; R73.03 Prediabetes; Z87.442 Personal history of urinary calculi
CPT/HCPCS: 36415; 71045; 74176; 80048; 80053; 80061; 80307; 81001; 82306; 82607; 82962; 83036; 83605; 83690; 83735; 84100; 84443; 84484; 85025; 85610; 85730; 93005; 93306; 93971; 99291; G0378